=== PATIENT | male | born 1995 | race Caucasian/White ===

== ENCOUNTER 2016-10-21 20:10 | Emergency (ER) | payer OTHER ==
[~2016-10-21] VITALS: Ht 190.5 cm; Wt 81.6 kg
[2016-10-21 20:10] VITALS: BP 124/87
--- NOTE | 2016-10-21 21:07 | PHYS DOC ---
Past History Past Medical History: No Pertinent History Past Surgical History: No Surgical History Smoking: Non-smoker Alcohol Use: None Drug Use: Marijuana Adult General Chief Complaint Chief Complaint: SORE THROAT HPI HPI Patient is a 21-year-old male brought to the ED by his mother with a complaint of a sore throat. His throat has been sore on the left for 3 days, getting a little worse. This soreness goes up into his left ear. He's had no fever or chills. Mom states she is concerned he hasn't had much to eat or drink for the last 2 days because his throat has been sore. Patient does not have any kind of chronic problems with strep throat or other throat problems. Review of Systems Review of Systems Constitutional: Denies fever or chills [] HENT: As in history of present illness GI: Denies vomiting Allergies Allergies Allergies Coded Allergies Type Severity Reaction Last Updated Verified No Known Drug Allergies 02/07/14 No Physical Exam Physical Exam Constitutional: Well developed, well nourished, no acute distress, non-toxic appearance. Alert, mentating normally, nontoxic and cardiac, voice is normal, sitting up on the cart doing something on his phone HENT: Normocephalic, atraumatic, bilateral external ears normal, bilateral EACs and TMs normal, nose normal. Tonsils are erythematous bilaterally, left is slightly more swollen than the right, no indication of peritonsillar abscess, uvula is midline, no significant exudates on the tonsils Eyes: conjunctiva normal, no discharge. [] Neck: Normal range of motion, no stridor. [] Skin: Warm, dry, no erythema, no rash. [] Extremities: No tenderness, no cyanosis, no clubbing, ROM intact, no edema. [] Neurologic: Alert and oriented X 3, normal motor function, normal sensory function, no focal deficits noted. [] Current Patient Data Vital Signs Vital Signs Date Time Temp Pulse Resp B/P (MAP) Pulse Ox O2 Delivery O2 Flow Rate FiO2 10/21/16 20:10 97.6 84 20 99 Room Air EKG EKG [] Radiology/Procedures Radiology/Procedures [] Course & Med Decision Making Course & Med Decision Making Pertinent Labs and Imaging studies reviewed. (See chart for details) Rapid strep negative. Mom is concerned that he might be dehydrated and requests a liter of IV fluids. The patient was given a liter of IV saline and a dose of Toradol. He remained stable and nontoxic in appearance while in the ED. [] Dragon Disclaimer Dragon Disclaimer This chart was dictated in whole or in part using Voice Recognition software in a busy, high-work load, and often noisy Emergency Department environment. It may contain unintended and wholly unrecognized errors or omissions. Departure Departure: Impression: Primary Impression: Pharyngitis Disposition: HOME, SELF-CARE Condition: STABLE Referrals: PCP,UNKNOWN (PCP) Patient Instructions: Sore Throat, [id number], Viral Pharyngitis Additional Instructions: Your strep test was negative. Your sore throat could be from a virus or allergy symptoms. Ibuprofen 800 mg every 6-8 hours for pain. Sprays or lozenges to numb your throat. STEPHANIE FORBES MD Oct 21, 2016 21:07
[2016-10-21] MEDS ORDERED: IV NORMAL SALINE 1,000ML 1,000 ML ONE (21:16)
[2016-10-21] MEDS ORDERED: IV NORMAL SALINE 1,000ML 1,000 ML IV ONE (21:30)
[2016-10-21] MEDS ORDERED: KETOROLAC 30 MG/ML VIAL. IV ONE (22:15)
== END 2016-10-21 22:10 | disposition home or self-care (01) ==
LOC: ER 20:10
DX: J02.9 Acute pharyngitis, unspecified (principal); H92.02 Otalgia, left ear; F12.10 Cannabis abuse, uncomplicated
CPT/HCPCS: 87070; 87880; 99284-25; J7030

== ENCOUNTER 2017-02-12 17:30 | Emergency (ER) | payer OTHER ==
[~2017-02-12] VITALS: Ht 190.5 cm; Wt 76.7 kg
[2017-02-12] MEDS ORDERED: HYDR-971 PO (17:49)
[2017-02-12] MEDS ORDERED: ALBU8.5H8 INH (17:53)
--- NOTE | 2017-02-12 17:53 | PHYS DOC ---
Past History Past Medical History: No Pertinent History Past Surgical History: No Surgical History Smoking: Non-smoker Alcohol Use: None Drug Use: Marijuana Adult General HPI HPI Patient is a 21-year-old male presenting to the emergency department for evaluation of cough sinus congestion runny nose that has been going on for 5 days but what brought him to the emergency department today is that he is having sharp right-sided chest pain when he takes a deep breath. He is healthy with no known connective tissue disease in himself or his family. He has never had a pneumothorax that he knows of. Patient has not tried anything for pain or for his cough. He denies any shortness of breath prior DVT PE recent travel immobility or surgery. PERC score = 0. Review of Systems Review of Systems Constitutional: Denies fever or chills [] HENT: + nasal congestion. No sore throat [] Respiratory: + cough. No shortness of breath [] Cardiovascular: + sharp R sided CP All other systems were reviewed and found to be within normal limits, except as documented in this note. Current Medications Current Medications Current Medications Medications (Trade) Dose Ordered Sig/Niall Start Time Stop Time Status Last Admin Dose Admin Ketorolac Tromethamine (Toradol) 60 mg 1X ONCE 02/12/17 17:45 02/12/17 17:46 UNV Allergies Allergies Allergies Coded Allergies Type Severity Reaction Last Updated Verified No Known Drug Allergies 02/07/14 No Physical Exam Physical Exam Constitutional: Well developed, well nourished, no acute distress, non-toxic appearance. [] HENT: Normocephalic, atraumatic, bilateral external ears normal, oropharynx moist, no oral exudates, nose normal. [] Eyes: PERRLA, EOMI, conjunctiva normal, no discharge. [] Neck: Normal range of motion, no tenderness, supple, no stridor. [] Cardiovascular:Heart rate regular rhythm, no murmur [] Lungs & Thorax: Bilateral breath sounds clear to auscultation [] Abdomen: Bowel sounds normal, soft, no tenderness, no masses, no pulsatile masses. [] Skin: Warm, dry, no erythema, no rash. [] Back: No tenderness, no CVA tenderness. [] Extremities: No tenderness, no cyanosis, no clubbing, ROM intact, no edema. [] Neurologic: Alert and oriented X 3, normal motor function, normal sensory function, no focal deficits noted. [] Psychologic: Affect normal, judgement normal, mood normal. [] EKG EKG [] Radiology/Procedures Radiology/Procedures Chest x-ray shows no obvious free air pneumothorax or opacity with normal mediastinum. Course & Med Decision Making Course & Med Decision Making Symptoms are quite consistent with pleurisy in my opinion. Looks very well with normal vital signs so he will be treated with Toradol get a chest x-ray to rule out thorax or acute pathology and likely be treated as an outpatient with NSAIDs [place] for breakthrough pain and albuterol and told to follow with PCP in the next 2-3 days and come back to the ED sooner with worsening pain shortness of breath or other general concerns. Dragon Disclaimer [place] Disclaimer This electronic medical record was generated, in whole or in part, using a voice recognition dictation system. Departure Departure: Impression: Primary Impression: Bronchitis Additional Impression: Pleurisy Disposition: 01 HOME, SELF-CARE Condition: STABLE Referrals: AIDAN JACK (PCP) Patient Instructions: Pleurisy Additional Instructions: TAKE 400MG OF IBUPROFEN EVERY 6 HOURS AND THE NORCO FOR BREAKTHROUGH PAIN. FOLLOW WITH YOUR PCP IN 2-3 DAYS TO ENSURE IMPROVEMENT AND COME BACK TO THE ED SOONER WITH WORSENING PAIN, SOA, OR OTHER GENERAL CONCERNS. Scripts Albuterol Sulfate (PROAIR HFA INHALER) 8.5 Gm Hfa.aer.ad 1 PUFF INH PRN Q6HRS Y for SHORTNESS OF BREATH, #1 INHALER 0 Refills Prov: JOSI DIEHL DO 02/12/17 Hydrocodone Bit/Acetaminophen (NORCO 5-325 TABLET) 1 Each Tablet 1 TAB PO PRN Q6HRS Y for PAIN, #10 TAB 0 Refills Prov: JOSI DIEHL DO 02/12/17 Problem Qualifiers JOSI DIEHL DO Feb 12, 2017 17:53
[2017-02-12] MEDS ORDERED: KETOROLAC 60 MG/2 ML VIAL. IM ONE (18:00)
[2017-02-12 18:25] VITALS: BP 135/69
--- NOTE | 2017-02-13 07:10 | RAD ---
2 view CXR: Clinical indications: Cough for 5 days with right-sided chest pain.. Comparison: June 24, 2014 Findings: No acute lung infiltrate or pleural effusion or pulmonary edema or lung mass or pneumothorax is seen. The heart size, pulmonary vasculature, mediastinum and both sixto are unremarkable. The osseous structures appear intact. Impression: No acute radiographic abnormality is seen.
== END 2017-02-12 18:20 | disposition home or self-care (01) ==
LOC: ER 17:30
DX: J40 Bronchitis, not specified as acute or chronic (principal); R09.1 Pleurisy; F12.10 Cannabis abuse, uncomplicated
CPT/HCPCS: 71020; 96372; 99284; J1885